=== PATIENT | female | born 1950 | race American Indian/Alaskan Native ===

== ENCOUNTER 2021-03-15 11:15 | Inpatient (IN) ==
[2021-03-15] MEDS ORDERED: IOPAMIDOL 100 ML BOTTLE IV ONE (11:16)
[2021-03-15] MEDS ORDERED: 0.9 % SODIUM CHLORIDE 1,000 ML IV ONE (11:55)
--- NOTE | 2021-03-15 12:06 | Emergency Department Note ---
Dizziness HPI General Chief Complaint: Nausea/Vomiting/Diarrhea Stated Complaint: nausea vomiting Time Seen by Provider: 03/15/21 11:30 Source: patient Mode of arrival: ambulatory History of Present Illness HPI Narrative: 70-year-old female presents with chief complaint of dizziness along with headache and nausea and vomiting. Symptoms started at 3 AM. Patient states she has been up and out in this hot weather and thinks her symptoms may be related to that. Patient does have a history of chronic migraines. She developed some unsteadiness last night along with a headache and nausea vomiting. Says she feels dizzy like as if she were drunk but she has not been drinking. No blurry vision. No chest pain or shortness of breath. Patient was seen in urgent care this morning and sent here because she is still very unsteady. Patient does not really describe a sense of movement but symptoms are worse when she moves her head and when she tries to get up. Patient denies any head trauma. No diarrhea. No fevers no chills. Related Data Home Medications Medication Instructions Recorded Confirmed cyanocobalamin (vitamin B-12) 1,000 mcg IM QMONTH 05/05/19 03/15/21 1,000 mcg/mL injection kit lorazepam 0.5 mg tablet 0.5 mg PO BIDP PRN 05/05/19 03/15/21 L.acidoph, paracasei,B. lactis 2 each PO DAILY 09/19/19 03/15/21 fluticasone propionate 2 spray NS BID PRN 09/19/19 03/15/21 turmeric root extract 1,000 mg PO BID 09/19/19 03/15/21 cholecalciferol (vitamin D3) 250 250 mcg PO QDAY 11/14/20 03/15/21 mcg (10,000 unit) tablet coenzyme Q10 100 mg capsule 100 mg PO QDAY 11/14/20 03/15/21 magnesium oxide 400 mg PO QDAY 11/14/20 03/15/21 Previous Rx's Medication Instructions Recorded budesonide 180 mcg/actuation See Rx Instructions .ROUTE 01/27/20 breath activated powder inhaler .COMPLEX #1 unknown measurement unit code: each olmesartan 5 mg tablet See Rx Instructions .ROUTE 05/10/20 .COMPLEX #90 tablet ipratropium 0.5 mg-albuterol 3 mg 3 ml INHALATION QID PRN #180 ml 05/17/20 (2.5 mg base)/3 mL nebulization soln albuterol sulfate 90 mcg/actuation See Rx Instructions .ROUTE 05/31/20 aerosol inhaler .COMPLEX #18 g triamterene 37.5 See Rx Instructions .ROUTE 08/14/20 mg-hydrochlorothiazide 25 mg tablet .COMPLEX #90 tab blood-glucose meter #1 each 10/12/20 epinephrine 0.3 mg/0.3 mL 0.3 ml IM ONCE PRN #1 each 10/26/20 injection, auto-injector blood sugar diagnostic #100 each 11/09/20 erenumab-aooe 70 mg/mL See Rx Instructions .ROUTE 11/26/20 subcutaneous auto-injector .COMPLEX #1 ml fenofibrate 54 mg tablet See Rx Instructions .ROUTE 12/17/20 .COMPLEX #90 tab Diabetic shoes with inserts #1 ea 12/25/20 lamotrigine 150 mg tablet 150 mg PO BID 30 Days #60 tab 01/16/21 prazosin 2 mg capsule 2 mg PO QHS 90 Days #90 cap 01/16/21 fexofenadine 180 mg tablet 180 mg PO Q24H #90 tab 01/23/21 glipizide 5 mg tablet, extended 5 mg PO QDAY #90 tab 02/13/21 release 24 hr Allergies Allergy/AdvReac Type Severity Reaction Status Date / Time Bee Pollen Allergy Severe Anaphylaxis Verified 03/15/21 10:36 Penicillins Allergy Severe Anaphylaxis Verified 03/15/21 10:36 shellfish derived Allergy Severe Anaphylaxis Verified 03/15/21 10:36 adhesive tape Allergy Mild Hives Verified 03/15/21 10:36 codeine Allergy Mild Hives Verified 03/15/21 10:36 iodine Allergy Mild Hives Verified 03/15/21 10:36 NSAIDS (Non-Steroidal Allergy Mild Swelling Verified 03/15/21 10:36 Anti-Inflamma bee venom protein (honey bee) Allergy Anaphylaxis Verified 03/15/21 10:36 bupropion AdvReac Mild Other Verified 03/15/21 10:36 diphenhydramine AdvReac Mild Insomnia Verified 03/15/21 10:36 duloxetine AdvReac Mild Hallucinati Verified 03/15/21 10:36 ng Erythromycin Base AdvReac Mild Gastrointestinal Verified 03/15/21 10:36 Upset hydroxyzine AdvReac Mild Hypertensio Verified 03/15/21 10:36 n meperidine AdvReac Mild Agitated Verified 03/15/21 10:36 morphine AdvReac Mild Agitated Verified 03/15/21 10:36 rofecoxib AdvReac Mild Hypertensio Verified 03/15/21 10:36 n most antidepressants Allergy Severe unknown Uncoded 03/15/21 10:36 trees Allergy Severe unknown Uncoded 03/15/21 10:36 Review of Systems ROS ROS Narrative: Narrative: All systems ED: reviewed and negative except as stated. Constitutional: Denies fever, chills and sweats Eyes: Denies vision change Cardiovascular: Denies chest pain Respiratory: Denies shortness of breath and cough Gastrointestinal: Denies vomiting Musculoskeletal: Denies back pain and joint pain Integumentary: Denies rash Neurological: Reports headache, abnormal gait and dizziness Psychiatric: Denies anxiety, suicidal thoughts and homicidal thoughts Endocrine: Denies polydipsia and polyuria Hematological/Lymphatic: Denies easy bleeding and easy bruising PFSH Narrative Patient History Narrative: Narrative: Medical/Surgical/Family History All Active Problems (Updated 03/15/21 @ 15:54 by Mo Cruz MD) Ataxic gait (Acute) Dizziness (Acute) Seasonal and perennial allergic rhinitis (Acute) Type II diabetes mellitus with peripheral autonomic neuropathy (Acute) Foot callus (Acute) Pain of right deltoid (Acute) Chronic right shoulder pain (Acute) Diabetes type 2, controlled (Acute) Head injury (Acute) Injury of knee, left (Acute) Severe obesity (Chronic) Anemia, B12 deficiency (Chronic) Liver cyst (Chronic) Non-alcoholic fatty liver disease (Chronic) Allergic rhinitis (Chronic) Hypertension (Chronic) Asthma, extrinsic (Chronic) Lumbar back pain (Chronic) Nodule on liver (Chronic) Hyperlipidemia (Chronic) History of kidney stones (Chronic) Atherosclerosis of aorta (Chronic) Post-op pain (Acute) Callus of foot (Chronic) Right-sided Jeff's palsy (Chronic) Post-traumatic headache (Chronic) Vaginal candidiasis (Chronic) Severe obesity (BMI >= 40) (Chronic) Spasm of back muscles (Chronic) Wrist pain (Chronic) Hand pain (Chronic) Painful swelling of joint (Chronic) Onychomycosis (Chronic) Neck pain (Chronic) Pain, joint, shoulder, right (Chronic) Anxiety disorder (Acute) Chronic obstructive pulmonary disease with (acute) exacerbation (Chronic) Radiculopathy, lumbar region (Chronic) Diverticulitis (Chronic) Chronic back pain (Chronic) Anxiety and depression (Chronic) Bipolar affect, depressed (Chronic) Asthma (Chronic) Viral syndrome (Acute) Sinusitis (Acute) Upper respiratory infection (Acute) Left anterior shoulder pain (Acute) Type 2 diabetes mellitus (Acute) Night terrors, adult (Acute) Encounter for immunization (Acute) Incontinence overflow, stress female (Acute) Closed head injury (Acute) Strain of muscle, fascia and tendon at neck level, initial encounter (Acute) Disorder of eating (Acute) Hypoglycemia associated with diabetes (Acute) Situational anxiety (Acute) Fatigue (Acute) Open wound of toe (Acute) Onychomycosis of toenail (Acute) Cervical spine pain (Acute) Cellulitis and abscess of unspecified digit (Acute) PTSD (post-traumatic stress disorder) (Chronic) Major depressive disorder, recurrent (Chronic) Medical History Acute exacerbation of chronic obstructive airways disease Allergic rhinitis Anemia, B12 deficiency Anxiety and depression Anxiety disorder with panic attacks - rule out panic disorder Asthma Asthma, extrinsic Atherosclerosis of aorta Bipolar affect, depressed Bladder infection frequent Bladder infection, chronic Chronic back pain Chronic obstructive pulmonary disease with (acute) exacerbation Diverticulitis Diverticulosis Dizziness Dysuria Encounter for immunization Hand pain Head injury improved- 11/27/20 History of Jeff's palsy History of kidney stones History of nephrolithotomy with removal of calculi (~03/2018) performed by Dr. Heard Hyperlipidemia Hypertension Injury of knee, left improving -11/27/20 Kidney stones Liver cyst Lumbar back pain with radiculopathy Migraine Muscle spasm of back Neck pain Neck pain Nodule on liver Non-alcoholic fatty liver disease Onychomycosis Onychomycosis of toenail Pain, joint, shoulder, right Painful swelling of joint Painful swelling of joint Post-traumatic headache Puncture wound Radiculopathy, lumbar region Right-sided Jeff's palsy Mild episode-09/07/20 RUQ abdominal pain RUQ abdominal tenderness Screening breast examination (~03/10/16) [facility] Severe obesity Severe obesity (BMI >= 40) Spasm of back muscles Uncontrolled diabetes mellitus controlled Vaginal candidiasis Viral syndrome Wrist pain Surgical History History of ankle surgery . Demetrio Torres History of arthroscopy of left knee (~2012) History of arthroscopy of right knee (~2013) History of 1973, 1974 and 1975 History of colonoscopy (~2012) performed by Dr. Rodriguez History of colonoscopy (02/24/19) performed by Dr. Bell History of esophagogastroduodenoscopy (EGD) (~02/2016) History of eye surgery (~1954) History of hip replacement (~2006) History of hysterectomy (~1979) History of shoulder surgery 2008 and 11/2017 History of surgery (~2011) arm/thumb Family History Father Alcohol abuse Mother Anxiety Depression Panic disorder Post traumatic stress disorder (PTSD) Other No pertinent family history Social History Smoking Status: Never smoker Alcohol Intake Frequency: does not drink Substance Use: does not use and marijuana Exam Narrative Narrative: Constitutional: Awake alert no acute distress obese HEENT: Normocephalic, atraumatic PERRLA, EOMI, lateral nystagmus is present, oral mucosa moist, pharynx clear, tympanic membranes are clear bilaterally Neck: Supple, no lymphadenopathy, no JVD Lungs: Breathing unlabored, lungs clear Cardiac: Regular rate and rhythm, normal distal pulses, GI: Soft nontender nondistended no guarding no rebound Musculoskeletal: No tenderness, no deformities, no edema, full range of motion Neuro: Awake alert, cranial nerves II through XII grossly intact, no focal motor or sensory deficits; NIH stroke score is 0, negative test of skew, patient does have some truncal ataxia as when patient tried to stand up she nearly fell over Psychiatric: Normal mood and affect Skin: Warm dry no rash, cap refill less than 2 seconds Course Reevaluation(s) Reevaluation #1: Patient feels better but still feels dizzy and off balance when she walks. Ambulation was attempted and patient does still have some mild reagan ncal ataxia. Discussed ED findings showed no acute process CT of the head labs are unremarkable. Patient is still unsteady with ataxic gait she is not safe to be discharged home at this time. Case discussed with the hospitalist for possible admission to the hospital. Time: 15:45 Consultations Consultation #1: Case discussed with Dr. Yi, hospitalist who would like neurology to be consulted first and if they are agreeable the patient could be admitted here. Time: 16:20 Consultation #2: Case discussed with neurologist, Dr. Best [place] who feels the patient symptoms are most consistent with benign positional vertigo since there are more of a positional component and gets better with rest even though the patient does not describe a spinning sensation. He felt the patient can be observed here and then to do a CTA of the brain since the patient cannot have an MRI and and also physical therapist evaluate the patient to help with the dizziness. I subsequently spoke with Dr. Yi who agrees to admit patient here. Time: 17:41 Vital Signs Vital signs: Vital Signs Temperature 97.1 F 03/15/21 11:16 Pulse Rate 65 03/15/21 11:16 Respiratory Rate 16 03/15/21 11:16 Blood Pressure 112/66 03/15/21 11:16 Pulse Oximetry (%) 97 03/15/21 11:16 Temperature 97.1 F 03/15/21 11:16 Pulse Rate 60 03/15/21 15:32 Respiratory Rate 15 03/15/21 15:32 Blood Pressure 135/78 03/15/21 15:32 Pulse Oximetry (%) 98 03/15/21 15:32 MDM MDM Narrative Medical decision making narrative: 70-year-old female presents with acute onset of dizziness unsteady gait since [address] of the brain did not show any acute process. Patient describes a unsteadiness rather than a spinning sensation. Case discussed with neurologist, Dr. Best at [facility] he felt the patient symptoms more likely represent BPPV rather than an acute posterior stroke as the patient's symptoms improved with rest and are worse with movement. He felt the patient would be stable for admission here. Discussed the case with Dr. Yi who agrees to admit the patient here for further evaluation treatment. Differential Diagnosis Differential Diagnosis: Vertigo, stroke, intracranial lesion, migraine, dehydration Lab Data Result diagrams: 03/15/21 12:26 03/15/21 12:26 Labs: Lab Results 03/15/21 03/15/21 03/15/21 Range/Units 12:05 12:05 12:26 WBC 8.3 (4.5-11.0) K/mcL RBC 4.50 (4.00-5.20) M/mcL Hgb 12.6 (12.0-15.0) g/dL Hct 40.1 (36.0-48.0) % MCV 89.1 (80.0-100.0) fL MCH 28.0 (26.0-34.0) pg MCHC 31.4 (31.0-36.0) g/dL RDW 13.9 (11.5-14.5) % Plt Count 241 (140-440) K/mcL MPV 10.8 H (7.4-10.4) fL Neut % (Auto) 70.4 (38.0-78.0) % Lymph % (Auto) 20.7 (15.0-49.0) % Vance % (Auto) 7.2 (1.0-12.0) % Eos % (Auto) 1.2 (0.0-7.0) % Baso % (Auto) 0.5 (0.0-2.0) % Lymph # (Auto) 1.72 (1.50-4.80) K/mcL Vance # (Auto) 0.60 (0.10-0.90) K/mcL Eos # (Auto) 0.10 (0.00-0.70) K/mcL Baso # (Auto) 0.04 (0.00-0.20) K/mcL Absolute Neutrophils 5.84 (1.80-8.00) K/mcL PT (11.9-14.5) sec INR (0.9-1.1) Sodium (133-145) mmol/L Potassium (3.3-5.1) mmol/L Chloride (96-108) mmol/L Carbon Dioxide (22-30) mmol/L Anion Gap (8.0-16.0) BUN (8-23) mg/dL Creatinine (0.6-1.1) mg/dL GFR Calculation Glucose (70-105) mg/dL Calcium (8.6-10.4) mg/dL Total Bilirubin (0.1-1.0) mg/dL AST (<32) U/L ALT (<40) U/L Alkaline Phosphatase (39-117) U/L Troponin T (<0.03) ng/mL Total Protein (5.9-8.4) gm/dL Albumin (3.2-5.2) gm/dL Globulin (2.2-3.7) gm/dL Albumin/Globulin Ratio (1.0-2.3) Urine Color Yellow Urine Appearance Clear (Clear) Urine pH 7.0 (5.0-9.0) Ur Specific Jackson 1.020 (1.000-1.035) Urine Protein Negative (Negative) mg/dL Urine Glucose (UA) Negative (Negative) mg/dL Urine Ketones Negative (Negative) mg/dL Urine Occult Blood Negative (Negative) mg/dL Urine Nitrate Negative (Negative) Urine Bilirubin Negative (Negative) mg/dL Urine Urobilinogen Negative mg/dL Ur Leukocyte Esterase Negative (Negative) /ug Ur Culture Indicated? No Urine Opiates Screen None detected Ur Opiates Confirm TNP Ur Oxycodone Screen None detected Urine Methadone Screen None detected Ur Methadone Confirm TNP Ur Barbiturates Screen None detected Ur Barbiturate Confirm TNP Ur Phencyclidine Scrn None detected Urine PCP Confirm TNP Ur Amphetamines Screen None detected U Amphetamines Confirm TNP U Benzodiazepines Scrn None detected U Benzodiazepine Confm TNP Urine Cocaine Screen None detected Urine Cocaine Confirm TNP U Marijuana (THC) Screen Suspect positive A 03/15/21 03/15/21 03/15/21 Range/Units 12:26 12:26 12:26 WBC (4.5-11.0) K/mcL RBC (4.00-5.20) M/mcL Hgb (12.0-15.0) g/dL Hct (36.0-48.0) % MCV (80.0-100.0) fL MCH (26.0-34.0) pg MCHC (31.0-36.0) g/dL RDW (11.5-14.5) % Plt Count (140-440) K/mcL MPV (7.4-10.4) fL Neut % (Auto) (38.0-78.0) % Lymph % (Auto) (15.0-49.0) % Vance % (Auto) (1.0-12.0) % Eos % (Auto) (0.0-7.0) % Baso % (Auto) (0.0-2.0) % Lymph # (Auto) (1.50-4.80) K/mcL Vance # (Auto) (0.10-0.90) K/mcL Eos # (Auto) (0.00-0.70) K/mcL Baso # (Auto) (0.00-0.20) K/mcL Absolute Neutrophils (1.80-8.00) K/mcL PT 12.8 (11.9-14.5) sec INR 0.9 (0.9-1.1) Sodium 141 (133-145) mmol/L Potassium 3.9 (3.3-5.1) mmol/L Chloride 103 (96-108) mmol/L Carbon Dioxide 26 (22-30) mmol/L Anion Gap 12.0 (8.0-16.0) BUN 26 H (8-23) mg/dL Creatinine 0.8 (0.6-1.1) mg/dL GFR Calculation 75 Glucose 160 H (70-105) mg/dL Calcium 10.2 (8.6-10.4) mg/dL Total Bilirubin 0.3 (0.1-1.0) mg/dL AST 13 (<32) U/L ALT 20 (<40) U/L Alkaline Phosphatase 45 (39-117) U/L Troponin T < 0.01 (<0.03) ng/mL Total Protein 7.2 (5.9-8.4) gm/dL Albumin 4.3 (3.2-5.2) gm/dL Globulin 2.9 (2.2-3.7) gm/dL Albumin/Globulin Ratio 1.5 (1.0-2.3) Urine Color Urine Appearance (Clear) Urine pH (5.0-9.0) Ur Specific Jackson (1.000-1.035) Urine Protein (Negative) mg/dL Urine Glucose (UA) (Negative) mg/dL Urine Ketones (Negative) mg/dL Urine Occult Blood (Negative) mg/dL Urine Nitrate (Negative) Urine Bilirubin (Negative) mg/dL Urine Urobilinogen mg/dL Ur Leukocyte Esterase (Negative) /ug Ur Culture Indicated? Urine Opiates Screen Ur Opiates Confirm Ur Oxycodone Screen Urine Methadone Screen Ur Methadone Confirm Ur Barbiturates Screen Ur Barbiturate Confirm Ur Phencyclidine Scrn Urine PCP Confirm Ur Amphetamines Screen U Amphetamines Confirm U Benzodiazepines Scrn U Benzodiazepine Confm Urine Cocaine Screen Urine Cocaine Confirm U Marijuana (THC) Screen ED POC Tests ED POC Tests: HERNANDO - SARS Antigen Negative EKG Data EKG #1: EKG attestation: Yes I reviewed and interpreted this EKG. and Yes There are no EKG findings of acute coronary syndrome EKG results narrative: Performed at 1216 shows sinus rhythm rate of 62 normal axis normal intervals no ectopy there is some early repolarization, Discharge Plan Patient/Caregiver Discharge Instructions Pt seen by [employer]/PA only: No Clinical Impression: Dizziness, Ataxic gait Patient Disposition: Xfer As Outpt/Obs ([facility]) Condition: Good Follow up with: Irina Martin ARNP [Primary Care Provider] - Prescriptions: No Action prazosin 2 mg capsule 2 mg PO QHS 90 Days Qty: 90 RF: 2 Hold Instructions: SHELL Harper lamotrigine [Lamictal] 150 mg tablet 150 mg PO BID 30 Days Qty: 60 RF: 2 magnesium oxide 400 mg magnesium capsule 400 mg PO QDAY RF: 0 cholecalciferol (vitamin D3) 250 mcg (10,000 unit) tablet 250 mcg PO QDAY RF: 0 coenzyme Q10 100 mg capsule 100 mg PO QDAY RF: 0 ipratropium-albuterol 0.5 mg-3 mg(2.5 mg base)/3 mL solution for nebulization 3 ml INHALATION QID PRN (Reason: shortness of breath) Qty: 180 RF: 3 budesonide [Pulmicort Flexhaler] 180 mcg/actuation aerosol powdr breath activated See Rx Instructions .ROUTE .COMPLEX Qty: 1 RF: 2 olmesartan 5 mg tablet See Rx Instructions .ROUTE .COMPLEX Qty: 90 RF: 3 albuterol sulfate 90 mcg/actuation HFA aerosol inhaler See Rx Instructions .ROUTE .COMPLEX Qty: 18 RF: 0 triamterene-hydrochlorothiazid 37.5-25 mg tablet See Rx Instructions .ROUTE .COMPLEX Qty: 90 RF: 3 (DME) blood-glucose meter [Accu-Chek Constance Plus Meter] Misc See Rx Instructions .ROUTE .MEDSUPPLY Qty: 1 RF: 0 epinephrine [EpiPen 2-Salty] 0.3 mg/0.3 mL auto-injector 0.3 ml IM ONCE PRN (Reason: Anaphylaxis) Qty: 1 RF: 0 (DME) Accu-Chek Constance Plus test strp Strip See Rx Instructions .ROUTE .MEDSUPPLY Qty: 100 RF: 0 Aimovig Autoinjector 70 mg/mL auto-injector See Rx Instructions .ROUTE .COMPLEX Qty: 1 RF: 3 fenofibrate 54 mg tablet See Rx Instructions .ROUTE .COMPLEX Qty: 90 RF: 1 (DME) Diabetic shoes with inserts See Rx Instructions .Route .MEDSUPPLY Qty: 1 RF: 0 lorazepam [Ativan] 0.5 mg tablet 0.5 mg PO BIDP PRN (Reason: Anxiety) RF: 0 B-12 Compliance 1,000 mcg/mL kit 1,000 mcg IM QMONTH RF: 0 fexofenadine 180 mg tablet 180 mg PO Q24H Qty: 90 RF: 1 glipizide 5 mg tablet extended release 24hr 5 mg PO QDAY Qty: 90 RF: 1 fluticasone propionate 1 SPRAY spray,suspension 2 spray NS BID PRN (Reason: Allergy Symptoms) RF: 0 turmeric root extract 500 MG capsule 1,000 mg PO BID RF: 0 L.acidoph, paracasei,B. lactis 1 EACH capsule 2 each PO DAILY RF: 0
[2021-03-15] MEDS ORDERED: ONDANSETRON 4 MG/2 ML VIAL IV ONE (12:22)
--- NOTE | 2021-03-15 12:53 | Cat Scan Report ---
CLINICAL INFORMATION: Dizziness and headache COMPARISON: Head CT 09/05/2020 TECHNIQUE: 2.5 mm helical slices were obtained in the skull base to vertex. Following reconstruction, axial reformatted images were reviewed at bone and parenchymal windows. The exam was performed using radiation dose optimization techniques including, but not limited to, automated exposure control, adjustment of the mA and/or kV according to patient size and use of iterative reconstruction technique. FINDINGS: The ventricles, sulci, fissures, and cisterns are normal in size and configuration. No extra-axial fluid collections are identified. The cerebrum, brainstem and cerebellum are unremarkable. There is no evidence of hemorrhage, mass effect, or edema. Bone windows show no osseous abnormality. IMPRESSION: Normal head CT without contrast. Interpreted and Authenticated by: Kingston Rodriguez 03/15/21
[2021-03-15 13:08] LABS: Basophils # (Auto) 0.04 K/mcL (0.00-0.20); Basophils % (Auto) 0.5 % (0.0-2.0); Eosinophils % (Auto) 1.2 % (0.0-7.0); Hematocrit 40.1 % (36.0-48.0); Hemoglobin 12.6 g/dL (12.0-15.0); Lymphocytes # (Auto) 1.72 K/mcL (1.50-4.80); Lymphocytes % (Auto) 20.7 % (15.0-49.0); Mean Cell Volume 89.1 fL (80.0-100.0); Mean Corpuscular HGB Conc 31.4 g/dL (31.0-36.0); Mean Platelet Volume 10.8 fL (7.4-10.4); Monocytes % (Auto) 7.2 % (1.0-12.0); Neutrophils % (Auto) 70.4 % (38.0-78.0); Platelet Count 241 K/mcL (140-440); Red Cell Distribution Width 13.9 % (11.5-14.5); WBC 8.3 K/mcL (4.5-11.0)
--- NOTE | 2021-03-15 13:17 | XRay Report ---
CLINICAL INFORMATION: dizziness COMPARISON: 04/09/2018 FINDINGS: Heart is borderline enlarged but unchanged. Mediastinum and pulmonary vessels are normal. There is minor bibasilar atelectasis. No infiltrates or effusions. IMPRESSION: Minor bibasilar atelectasis. Interpreted and Authenticated by: Kingston Rodriguez 03/15/21
[2021-03-15 13:27] LABS: Appearance,Urine CLEAR (Clear); Bilirubin,Urine Negative (Negative); Color,Urine YELLOW; Culture Indicated,Urine No; Glucose,Urine (UA) Negative (Negative); Ketones,Urine Negative (Negative); Leukocyte Esterase,Urine Negative /ug (Negative); Nitrate,Urine Negative (Negative); Protein,Urine Negative (Negative); Urine Blood Negative (Negative); Urobilinogen,Urine Negative
[2021-03-15 13:41] LABS: INR 0.9 (0.9-1.1); Prothrombin Time 12.8 sec (11.9-14.5)
[2021-03-15 14:07] LABS: Amphetamine Screen,Urine None detected; Barbiturate Screen,Urine None detected; Benzodiazepines Screen,Urine None detected; Cannabinoid Screen,Urine Suspect Positive; Cocaine Screen,Urine None detected; Opiate Screen,Urine None detected; Oxycodone, Urine Screen None detected; Phencyclidine Screen,Urine None detected
[2021-03-15 14:28] LABS: ALT/SGPT 20 U/L (<40); AST/SGOT 13 U/L (<32); Albumin 4.3 gm/dL (3.2-5.2); Albumin/Globulin Ratio 1.5 (1.0-2.3); Alkaline Phosphatase 45 U/L (39-117); Bilirubin,Total 0.3 mg/dL (0.1-1.0); Blood Urea Nitrogen 26 mg/dL (8-23); Calcium 10.2 mg/dL (8.6-10.4); Carbon Dioxide 26 mmol/L (22-30); Chloride 103 mmol/L (96-108); Globulin 2.9 gm/dL (2.2-3.7); Glomerular Filtration Rate 75; Glucose 160 mg/dL (70-105)
[2021-03-15] MEDS ORDERED: methylPREDNISolone SOD SUCC 125 MG/2 ML VIAL IV ONE (17:52)
[2021-03-15] MEDS ORDERED: diphenhydrAMINE 50 MG/ML VIAL IV ONE (17:52)
--- NOTE | 2021-03-15 18:03 | Internal Med History&Physical ---
HPI History of Present Illness Patient information: Note initiated : 03/15/21 at 5:58 pm Service Date, if different from initiated Date: [] Patient: Shakila Loya a 70 y/o F admitted on for N/V. Chief Complaint: [] History of present illness: Ms. Loya is a 70 year old F Patient presents today with feeling ill upset stomach feeling like she is drunk he says kind of like vertigo but not quite. Patient went to bed feeling relatively fine feels a little warm she has been out in the heat for the past couple days. She woke up at 3 AM with a sick stomach and went back to bed got up at 6 went to feed her horse out in the heat came back still feeling ill upset stomach. Ventrally she went into minor care where she started having some nausea vomiting. Denies diarrhea. She does have a headache which she says is different from her usual tension headaches. Does not have that anymore. Noncontrast CT in ED was unremarkable. \Vital signs unremarkable. Chemistry negative of volume depletion Case discussed with neurologist given consideration for possibly posterior infarct. Neurologist felt less likely and probably related to BPPV given increased symptoms with movement recommended CTA head and neck. Patient understood that he in the ED and felt unsafe for discharge. Admission requested for further imaging work-up and evaluation. Review of Systems: Pertinent positives as above. Denies headache/fever/chills/chest or abdominal pain/cough/dyspnea/diarrhea. Remaining 10 point review of system reviewed negative PFSH PFSH All Active Problems (Updated 03/15/21 @ 15:54 by Mo Cruz MD) Ataxic gait (Acute) Dizziness (Acute) Seasonal and perennial allergic rhinitis (Acute) Type II diabetes mellitus with peripheral autonomic neuropathy (Acute) Foot callus (Acute) Pain of right deltoid (Acute) Chronic right shoulder pain (Acute) Diabetes type 2, controlled (Acute) Head injury (Acute) Injury of knee, left (Acute) Severe obesity (Chronic) Anemia, B12 deficiency (Chronic) Liver cyst (Chronic) Non-alcoholic fatty liver disease (Chronic) Allergic rhinitis (Chronic) Hypertension (Chronic) Asthma, extrinsic (Chronic) Lumbar back pain (Chronic) Nodule on liver (Chronic) Hyperlipidemia (Chronic) History of kidney stones (Chronic) Atherosclerosis of aorta (Chronic) Post-op pain (Acute) Callus of foot (Chronic) Right-sided Jeff's palsy (Chronic) Post-traumatic headache (Chronic) Vaginal candidiasis (Chronic) Severe obesity (BMI >= 40) (Chronic) Spasm of back muscles (Chronic) Wrist pain (Chronic) Hand pain (Chronic) Painful swelling of joint (Chronic) Onychomycosis (Chronic) Neck pain (Chronic) Pain, joint, shoulder, right (Chronic) Anxiety disorder (Acute) Chronic obstructive pulmonary disease with (acute) exacerbation (Chronic) Radiculopathy, lumbar region (Chronic) Diverticulitis (Chronic) Chronic back pain (Chronic) Anxiety and depression (Chronic) Bipolar affect, depressed (Chronic) Asthma (Chronic) Viral syndrome (Acute) Sinusitis (Acute) Upper respiratory infection (Acute) Left anterior shoulder pain (Acute) Type 2 diabetes mellitus (Acute) Night terrors, adult (Acute) Encounter for immunization (Acute) Incontinence overflow, stress female (Acute) Closed head injury (Acute) Strain of muscle, fascia and tendon at neck level, initial encounter (Acute) Disorder of eating (Acute) Hypoglycemia associated with diabetes (Acute) Situational anxiety (Acute) Fatigue (Acute) Open wound of toe (Acute) Onychomycosis of toenail (Acute) Cervical spine pain (Acute) Cellulitis and abscess of unspecified digit (Acute) PTSD (post-traumatic stress disorder) (Chronic) Major depressive disorder, recurrent (Chronic) Medical History Acute exacerbation of chronic obstructive airways disease Allergic rhinitis Anemia, B12 deficiency Anxiety and depression Anxiety disorder with panic attacks - rule out panic disorder Asthma Asthma, extrinsic Atherosclerosis of aorta Bipolar affect, depressed Bladder infection frequent Bladder infection, chronic Chronic back pain Chronic obstructive pulmonary disease with (acute) exacerbation Diverticulitis Diverticulosis Dizziness Dysuria Encounter for immunization Hand pain Head injury improved- 11/27/20 History of Jeff's palsy History of kidney stones History of nephrolithotomy with removal of calculi (~03/2018) performed by Dr. Heard Hyperlipidemia Hypertension Injury of knee, left improving -11/27/20 Kidney stones Liver cyst Lumbar back pain with radiculopathy Migraine Muscle spasm of back Neck pain Neck pain Nodule on liver Non-alcoholic fatty liver disease Onychomycosis Onychomycosis of toenail Pain, joint, shoulder, right Painful swelling of joint Painful swelling of joint Post-traumatic headache Puncture wound Radiculopathy, lumbar region Right-sided Jeff's palsy Mild episode-09/07/20 RUQ abdominal pain RUQ abdominal tenderness Screening breast examination (~03/10/16) [facility] Severe obesity Severe obesity (BMI >= 40) Spasm of back muscles Uncontrolled diabetes mellitus controlled Vaginal candidiasis Viral syndrome Wrist pain Surgical History History of ankle surgery . Demetrio Torres History of arthroscopy of left knee (~2012) History of arthroscopy of right knee (~2013) History of 1973, 1974 and 1975 History of colonoscopy (~2012) performed by Dr. Rodriguez History of colonoscopy (02/24/19) performed by Dr. Bell History of esophagogastroduodenoscopy (EGD) (~02/2016) History of eye surgery (~1954) History of hip replacement (~2006) History of hysterectomy (~1979) History of shoulder surgery 2008 and 11/2017 History of surgery (~2011) arm/thumb Family History Father Alcohol abuse Mother Anxiety Depression Panic disorder Post traumatic stress disorder (PTSD) Other No pertinent family history Social History marital status: single physical activity: none alcohol intake frequency: does not drink substance use type: does not use and marijuana MEDS/ALLERGIES Home Medications and Allergies Home Medications Medication Instructions Recorded Confirmed Type cyanocobalamin (vitamin B-12) 1,000 mcg IM QMONTH 05/05/19 03/15/21 History 1,000 mcg/mL injection kit lorazepam 0.5 mg tablet 0.5 mg PO BIDP PRN 05/05/19 03/15/21 History L.acidoph, paracasei,B. lactis 2 each PO DAILY 09/19/19 03/15/21 History fluticasone propionate 2 spray NS BID PRN 09/19/19 03/15/21 History turmeric root extract 1,000 mg PO BID 09/19/19 03/15/21 History budesonide 180 mcg/actuation See Rx Instructions .ROUTE 01/27/20 03/15/21 Rx breath activated powder inhaler .COMPLEX #1 unknown measurement unit code: each olmesartan 5 mg tablet See Rx Instructions .ROUTE 05/10/20 03/15/21 Rx .COMPLEX #90 tablet ipratropium 0.5 mg-albuterol 3 mg 3 ml INHALATION QID PRN #180 ml 05/17/20 03/15/21 Rx (2.5 mg base)/3 mL nebulization soln albuterol sulfate 90 mcg/actuation See Rx Instructions .ROUTE 05/31/20 03/15/21 Rx aerosol inhaler .COMPLEX #18 g triamterene 37.5 See Rx Instructions .ROUTE 08/14/20 03/15/21 Rx mg-hydrochlorothiazide 25 mg tablet .COMPLEX #90 tab blood-glucose meter #1 each 10/12/20 03/15/21 Rx epinephrine 0.3 mg/0.3 mL 0.3 ml IM ONCE PRN #1 each 10/26/20 03/15/21 Rx injection, auto-injector blood sugar diagnostic #100 each 11/09/20 03/15/21 Rx cholecalciferol (vitamin D3) 250 250 mcg PO QDAY 11/14/20 03/15/21 History mcg (10,000 unit) tablet coenzyme Q10 100 mg capsule 100 mg PO QDAY 11/14/20 03/15/21 History magnesium oxide 400 mg PO QDAY 11/14/20 03/15/21 History erenumab-aooe 70 mg/mL See Rx Instructions .ROUTE 11/26/20 03/15/21 Rx subcutaneous auto-injector .COMPLEX #1 ml fenofibrate 54 mg tablet See Rx Instructions .ROUTE 12/17/20 03/15/21 Rx .COMPLEX #90 tab Diabetic shoes with inserts #1 ea 12/25/20 03/15/21 Rx lamotrigine 150 mg tablet 150 mg PO BID 30 Days #60 tab 01/16/21 03/15/21 Rx prazosin 2 mg capsule 2 mg PO QHS 90 Days #90 cap 01/16/21 03/15/21 Rx fexofenadine 180 mg tablet 180 mg PO Q24H #90 tab 01/23/21 03/15/21 Rx glipizide 5 mg tablet, extended 5 mg PO QDAY #90 tab 02/13/21 03/15/21 Rx release 24 hr Allergies Allergy/AdvReac Type Severity Reaction Status Date / Time Bee Pollen Allergy Severe Anaphylaxis Verified 03/15/21 10:36 Penicillins Allergy Severe Anaphylaxis Verified 03/15/21 10:36 shellfish derived Allergy Severe Anaphylaxis Verified 03/15/21 10:36 adhesive tape Allergy Mild Hives Verified 03/15/21 10:36 codeine Allergy Mild Hives Verified 03/15/21 10:36 iodine Allergy Mild Hives Verified 03/15/21 10:36 NSAIDS (Non-Steroidal Allergy Mild Swelling Verified 03/15/21 10:36 Anti-Inflamma bee venom protein (honey bee) Allergy Anaphylaxis Verified 03/15/21 10:36 bupropion AdvReac Mild Other Verified 03/15/21 10:36 diphenhydramine AdvReac Mild Insomnia Verified 03/15/21 10:36 duloxetine AdvReac Mild Hallucinati Verified 03/15/21 10:36 ng Erythromycin Base AdvReac Mild Gastrointestinal Verified 03/15/21 10:36 Upset hydroxyzine AdvReac Mild Hypertensio Verified 03/15/21 10:36 n meperidine AdvReac Mild Agitated Verified 03/15/21 10:36 morphine AdvReac Mild Agitated Verified 03/15/21 10:36 rofecoxib AdvReac Mild Hypertensio Verified 03/15/21 10:36 n most antidepressants Allergy Severe unknown Uncoded 03/15/21 10:36 trees Allergy Severe unknown Uncoded 03/15/21 10:36 EXAM Constitutional Vitals: Temp Pulse Resp BP Pulse Ox 97.1 F 60 15 135/78 98 03/15/21 11:16 03/15/21 15:32 03/15/21 15:32 03/15/21 15:32 03/15/21 15:32 Exam: General: Alert, Awake, No acute Distress Eyes/N/T: EOMI, PERRL, dry MM Head/Neck: neck supple, normocephalic atraumatic CV: RRR, No murmurs, normal s1/s2 Pulm: Clear b/l, no wheezing/rhonchi/rales Abd: soft, nontender, +BS x4 Ext: no clubbing/cyanosis/edema Neuro: Alert, no focal deficits, moves all extremities, CN 2-12 grossly intact, symmetrical strength b/l upper/lower, sensations intact b/l upper/lower Skin: warm/dry DATA Data Completed and Pending Labs: Labs from last 24 hours 03/15/21 03/15/21 03/15/21 12:26 12:26 12:26 WBC RBC Hgb Hct MCV MCH MCHC RDW Plt Count MPV Neut % (Auto) Lymph % (Auto) [place] % (Auto) Eos % (Auto) Baso % (Auto) Lymph # (Auto) [place] # (Auto) Eos # (Auto) Baso # (Auto) Absolute Neutrophils PT 12.8 INR 0.9 Sodium 141 Potassium 3.9 Chloride 103 Carbon Dioxide 26 Anion Gap 12.0 BUN 26 H Creatinine 0.8 GFR Calculation 75 Glucose 160 H Calcium 10.2 Total Bilirubin 0.3 AST 13 ALT 20 Alkaline Phosphatase 45 Troponin T < 0.01 Total Protein 7.2 Albumin 4.3 Globulin 2.9 Albumin/Globulin Ratio 1.5 Urine Color Urine Appearance Urine pH Ur Specific [place] Urine Protein Urine Glucose (UA) Urine Ketones Urine Occult Blood Urine Nitrate Urine Bilirubin Urine Urobilinogen Ur Leukocyte Esterase Ur Culture Indicated? Urine Opiates Screen Ur Opiates Confirm Ur Oxycodone Screen Urine Methadone Screen Ur Methadone Confirm Ur Barbiturates Screen Ur Barbiturate Confirm Ur Phencyclidine Scrn Urine PCP Confirm Ur Amphetamines Screen U Amphetamines Confirm U Benzodiazepines Scrn U Benzodiazepine Confm Urine Cocaine Screen Urine Cocaine Confirm U Cannabinoids Confirm U Marijuana (THC) Screen 03/15/21 03/15/21 03/15/21 12:26 12:05 12:05 WBC 8.3 RBC 4.50 Hgb 12.6 Hct 40.1 MCV 89.1 MCH 28.0 MCHC 31.4 RDW 13.9 Plt Count 241 MPV 10.8 H Neut % (Auto) 70.4 Lymph % (Auto) 20.7 [place] % (Auto) 7.2 Eos % (Auto) 1.2 Baso % (Auto) 0.5 Lymph # (Auto) 1.72 [place] # (Auto) 0.60 Eos # (Auto) 0.10 Baso # (Auto) 0.04 Absolute Neutrophils 5.84 PT INR Sodium Potassium Chloride Carbon Dioxide Anion Gap BUN Creatinine GFR Calculation Glucose Calcium Total Bilirubin AST ALT Alkaline Phosphatase Troponin T Total Protein Albumin Globulin Albumin/Globulin Ratio Urine Color Yellow Urine Appearance Clear Urine pH 7.0 Ur Specific [place] 1.020 Urine Protein Negative Urine Glucose (UA) Negative Urine Ketones Negative Urine Occult Blood Negative Urine Nitrate Negative Urine Bilirubin Negative Urine Urobilinogen Negative Ur Leukocyte Esterase Negative Ur Culture Indicated? No Urine Opiates Screen None detected Ur Opiates Confirm TNP Ur Oxycodone Screen None detected Urine Methadone Screen None detected Ur Methadone Confirm TNP Ur Barbiturates Screen None detected Ur Barbiturate Confirm TNP Ur Phencyclidine Scrn None detected Urine PCP Confirm TNP Ur Amphetamines Screen None detected U Amphetamines Confirm TNP U Benzodiazepines Scrn None detected U Benzodiazepine Confm TNP Urine Cocaine Screen None detected Urine Cocaine Confirm TNP U Cannabinoids Confirm Pending U Marijuana (THC) Screen Suspect positive A A/P Narrative A/P Narrative: A: *Vertigo: bppv vs dehydration/heat exhaustion - *N/V: 2/2 above *Diabetes w/neuropathy: *HTN/HLD: *Asthma: *PTSD/anxiety: On Lamictal/Ativan *Obesity: * P: -IVF -CTA head neck pending -Meclizine -Continue home medications but hold HCTZ for now -SSI -clarify home meds -PT/OT -ppx: Lovenox DNR Time Spent With Patient Time: Total time spent is greater than 50% in coordination of care (as documented) at patient's floor/unit and/or counseling patient:
--- NOTE | 2021-03-15 18:41 | Cat Scan Report ---
CLINICAL INFORMATION: Dizziness COMPARISON: None. TECHNIQUE: 80 cc of Isovue-370 were injected intravenously , and using SmartPrep to maximize cerebral arterial opacification, 0.625 mm helical slices were obtained from the skull base through the cerebral vertex. Following reconstruction , sagittal, coronal and axial reformatted images were processed and reviewed at multiple windows and levels. 3D volume rendered and MIP images were acquired at a independent workstation. The exam was performed using radiation dose optimization techniques including, but not limited to, automated exposure control, adjustment of the mA and/or kV according to patient size and use of iterative reconstruction technique. FINDINGS: Intracranial vertebral, intracranial internal carotid, anterior middle and posterior cerebral arteries show scattered sclerotic plaque, but no significant stenosis occlusion or other abnormality. Superficial and deep cerebral veins and deep venous sinuses are patent IMPRESSION: Normal intracerebral arterial vascular and venous structures Interpreted and Authenticated by: Kingston Rodriguez 03/15/21
--- NOTE | 2021-03-15 18:43 | Cat Scan Report ---
CLINICAL INFORMATION: Dizziness COMPARISON: None. TECHNIQUE: 80 cc of Isovue-370 were injected intravenously, and using SmartPrep to maximize arterial opacification, 0.625 mm helical slices were obtained from the thoracic aortic arch through the [place]. Following reconstruction, 2.5mm sagittal, coronal and axial reformatted images were processed and reviewed at standard and bone algorithm/window. 3-D volume rendered, CPR and MIP images were processed using a [employer] work station.The exam was performed using radiation dose optimization techniques including, but not limited to, automated exposure control, adjustment of the mA and/or kV according to patient size and use of iterative reconstruction technique. FINDINGS: Thoracic aorta is normal in diameter with moderate fibrofatty calcific plaque. Aortic branching is conventional. The brachiocephalic, both subclavian, both internal/external common carotid cervical vertebral arteries are widely patent. No soft tissue abnormality. IMPRESSION: Normal thoracic aortic arch cephalic, all carotid, both subclavian and both vertebral arteries. 8 mm nodule in the superior segment of the right upper lobe. This mild underlying COPD. Suggest follow-up chest CT in six months to reevaluate the right lower lobe nodule Interpreted and Authenticated by: Kingston Rodriguez 03/15/21
[2021-03-15] MEDS ORDERED: DEXTROSE 50% 50 ML VIAL IV PRN (19:33)
[2021-03-15] MEDS ORDERED: diphenhydrAMINE 50 MG/ML VIAL IV PRN (19:33)
[2021-03-15] MEDS ORDERED: MECLIZINE 25 MG TABLET PO PRN (19:33)
[2021-03-15] MEDS ORDERED: HYDROcodone/APAP 5/325MG TABLET PO PRN (19:33)
[2021-03-15] MEDS ORDERED: DEXTROSE 31 GM ORAL.SUSP PO PRN (19:33)
[2021-03-15] MEDS ORDERED: 0.9 % SODIUM CHLORIDE 1,000 ML IV SCH (19:33)
[2021-03-15] MEDS ORDERED: ONDANSETRON 4 MG/2 ML VIAL IV PRN (19:33)
[2021-03-15] MEDS: INSULIN LISPRO 1 UNIT/0.01 ML UNIT SQ SCH (21:04)
[2021-03-15] MEDS: SENNOSIDES 1 TABLET PO SCH (21:04)
[2021-03-15] MEDS: 0.9 % SODIUM CHLORIDE 10 ML SYRINGE IV SCH (21:05)
[2021-03-15] MEDS: ACETAMINOPHEN 325 MG TABLET PO PRN (21:05)
[2021-03-15] MEDS ORDERED: LORazepam 0.5 MG TABLET PO PRN (21:08)
[2021-03-15] MEDS: lamoTRIgine 100 MG TABLET PO SCH (22:39)
[2021-03-15] MEDS: FENOFIBRATE 43 MG CAPSULE PO SCH (22:39)
[2021-03-15] MEDS: BUDESONIDE 1 PUFF INHALER INH SCH (22:43)
[2021-03-16] MEDS: ACETAMINOPHEN 325 MG TABLET PO PRN (06:14)
[2021-03-16] MEDS: 0.9 % SODIUM CHLORIDE 10 ML SYRINGE IV SCH ×3 (06:19→21:05)
[2021-03-16] MEDS: INSULIN LISPRO 1 UNIT/0.01 ML UNIT SQ SCH ×4 (07:23→20:59)
[2021-03-16] MEDS ORDERED: glipiZIDE 5 MG TAB.XL.24H PO SCH (07:30)
--- NOTE | 2021-03-16 07:52 | Internal Med Progress Note ---
SUBJECTIVE Subjective Patient information: Note initiated : 03/16/21 at 7:49 am Service Date, if different from initiated Date: [] Patient: Shakila Loya a 70 y/o F admitted on 03/15/21 for N/V. Chief Complaint: [] Interval history: History of present illness: Ms. Loya is a 70 year old F Patient presents today with feeling ill upset stomach feeling like she is drunk he says kind of like vertigo but not quite. Patient went to bed feeling relatively fine feels a little warm she has been out in the heat for the past couple days. She woke up at 3 AM with a sick stomach and went back to bed got up at 6 went to feed her horse out in the heat came back still feeling ill upset stomach. Ventrally she went into minor care where she started having some nausea vomiting. Denies diarrhea. She does have a headache which she says is different from her usual tension headaches. Does not have that anymore. Noncontrast CT in ED was unremarkable. \Vital signs unremarkable. Chemistry negative of volume depletion Case discussed with neurologist given consideration for possibly posterior infarct. Neurologist felt less likely and probably related to BPPV given increased symptoms with movement recommended CTA head and neck. Patient understood that he in the ED and felt unsafe for discharge. Admission requested for further imaging work-up and evaluation. 03/16 Overall feeling much better. Still has a mild headache this morning. Still feels a little bit wobbly when she is up. Review of Systems: denies headache/fever/chills/nausea/vomiting/chest or abdominal pain/cough/dyspnea/diarrhea. Otherwise see above. Constitutional Vitals: Vital Signs Temp Pulse Resp BP Pulse Ox 97.3 F 68 16 119/78 96 03/16/21 07:06 03/16/21 07:06 03/16/21 07:06 03/16/21 07:06 03/16/21 07:06 Period Temp Pulse Resp BP Sys/Senior Pulse Ox Last 24 Hr 97.1 F-98.8 F 56-68 15-24 82-153/48-82 96-100 Intake and Output 03/15/21 03/16/21 03/16/21 21:59 05:59 13:59 Intake Total 6917 078 1556 Output Total 300 1475 Balance 700 -1175 1000 Weight 100.652 kg Intake & Output: Intake & Output 03/15/21 03/16/21 03/16/21 21:59 05:59 13:59 Intake Total 4520 382 1936 Output Total 300 1475 Balance 700 -1175 1000 Weight 100.652 kg Intake: IV 1000 1000 Sodium Chloride 0.9% 1,000 ml @ 1000 1000 100 mls/hr IV .Q10H [facility] Rx#: [id number] Oral 300 Output: Void Amount 300 1475 Other: Urine Appearance Clear Clear Urine Color Bright Yellow Pale # Voids 1 Exam: General: Alert, Awake, No acute Distress Eyes/N/T: EOMI, Head/Neck: neck supple, CV: RRR, No murmurs, Pulm: Clear b/l, no wheezing/rhonchi/rales Abd: soft, nontender, +BS x4 Ext: no clubbing/cyanosis/edema Neuro: Alert, no focal deficits, moves all extremities, Skin: warm/dry OBJ DATA Labs CBC & Chem 7: 03/16/21 05:20 03/15/21 12:26 Labs: Abnormal Lab Results 03/15/21 03/15/21 03/15/21 12:26 12:26 12:05 MPV 10.8 H BUN 26 H Glucose 160 H U Marijuana (THC) Screen Suspect positive A Meds: Medications Acetaminophen (Acetaminophen 325 Mg Tablet) 650 mg PO Q6HP PRN; Protocol PRN Reason: Per Pain Protocol/Fever > 101 Last Admin: 03/16/21 06:14 Dose: 650 mg Documented by: Budesonide (Budesonide 1 Puff Inhaler) 2 puff INH BID [facility] Last Admin: 03/15/21 22:43 Dose: Not Given Documented by: Dextrose (Dextrose 50% 50 Ml Vial) 0 ml IV UD PRN PRN Reason: Hypoglycemia Diagnostic Test (Pha) (Accu-Chek 1 Each Strip) 1 each FS ACHS [facility] Last Admin: 03/16/21 07:22 Dose: 1 each Documented by: Diphenhydramine HCl (Diphenhydramine 50 Mg/Ml Vial) 25 mg IV Q4-6HP PRN PRN Reason: Nausea Enoxaparin Sodium (Enoxaparin 40 Mg/0.4 Ml Syringe) 40 mg SQ DAILY [facility] Fenofibrate (Fenofibrate 43 Mg Capsule) 43 mg PO HS [facility] Last Admin: 03/15/21 22:39 Dose: 43 mg Documented by: Glipizide (Glipizide 5 Mg Tab.Xl.24h) 5 mg PO ACB [facility] Last Admin: 03/16/21 07:21 Dose: 5 mg Documented by: Glucose (Dextrose 31 Gm Oral.Susp) 15 gm PO PRN PRN PRN Reason: Hypoglycemia Insulin Human Lispro (Insulin Lispro 1 Unit/0.01 Ml Unit) 0 unit SQ ACHS [facility]; Protocol Last Admin: 03/16/21 07:23 Dose: Not Given Documented by: Lamotrigine (Lamotrigine 100 Mg Tablet) 150 mg PO BID [facility] Last Admin: 03/15/21 22:39 Dose: 150 mg Documented by: Lorazepam (Lorazepam 0.5 Mg Tablet) 0.5 mg PO BIDP PRN PRN Reason: Anxiety Meclizine HCl (Meclizine 25 Mg Tablet) 25 mg PO TIDP PRN PRN Reason: Vertigo Olmesartan (Olmesartan Medoxomil 20 Mg Tablet) 5 mg PO DAILY [facility] Ondansetron HCl (Ondansetron 4 Mg/2 Ml Vial) 4 mg IV Q6HP PRN PRN Reason: Nausea And Vomiting Senna (Sennosides 1 Tablet) 2 tab PO HS [facility] Last Admin: 03/15/21 21:04 Dose: Not Given Documented by: Sodium Chloride (0.9 % Sodium Chloride 10 Ml Syringe) 10 ml IV Q8 [facility] Last Admin: 03/16/21 06:19 Dose: Not Given Documented by: A/P Narrative A/P Narrative: A: *Vertigo: bppv vs dehydration/heat exhaustion -CTA head/neck unremarkable *N/V: 2/2 above *Diabetes w/neuropathy: *HTN/HLD: *Asthma: *PTSD/anxiety: On Lamictal/Ativan *Obesity: * P: -s/p IVF -Meclizine -Continue home medications but hold HCTZ for now -SSI -PT/OT -ppx: Lovenox DNR Time Spent With Patient Time: Total time spent is greater than 50% in coordination of care (as documented) at patient's floor/unit and/or counseling patient: QUALITY VTE Deep Vein Thrombosis/Pulmonary Embolism Present on Admission: No
[2021-03-16 08:27] LABS: Basophils # (Auto) 0.05 K/mcL (0.00-0.20); Basophils % (Auto) 0.6 % (0.0-2.0); Eosinophils # (Auto) 0.12 K/mcL (0.00-0.70); Eosinophils % (Auto) 1.5 % (0.0-7.0); Hemoglobin 11.9 g/dL (12.0-15.0); Lymphocytes # (Auto) 2.17 K/mcL (1.50-4.80); Mean Cell Volume 90.7 fL (80.0-100.0); Mean Corpuscular HGB Conc 30.5 g/dL (31.0-36.0); Mean Platelet Volume 10.9 fL (7.4-10.4); Monocytes # (Auto) 0.63 K/mcL (0.10-0.90); Monocytes % (Auto) 7.8 % (1.0-12.0); Neutrophils % (Auto) 63.1 % (38.0-78.0); Platelet Count 237 K/mcL (140-440); Red Cell Distribution Width 13.9 % (11.5-14.5); WBC 8.1 K/mcL (4.5-11.0)
[2021-03-16 08:52] LABS: ALT/SGPT 18 U/L (<40); AST/SGOT 10 U/L (<32); Albumin 3.9 gm/dL (3.2-5.2); Albumin/Globulin Ratio 1.6 (1.0-2.3); Alkaline Phosphatase 40 U/L (39-117); Bilirubin,Direct < 0.2 mg/dL (0-0.3); Bilirubin,Total 0.3 mg/dL (0.1-1.0); Blood Urea Nitrogen 18 mg/dL (8-23); Calcium 9.6 mg/dL (8.6-10.4); Carbon Dioxide 26 mmol/L (22-30); Chloride 106 mmol/L (96-108); Globulin 2.4 gm/dL (2.2-3.7); Glomerular Filtration Rate 92; Glucose 106 mg/dL (70-105); Lactate Dehydrogenase 233 U/L (135-225); Triglycerides 63 mg/dL (<150); Uric Acid 4.9 mg/dL (2.5-8.0)
[2021-03-16] MEDS ORDERED: OLMESARTAN MEDOXOMIL 20 MG TABLET PO SCH ×2 (09:00→21:00)
--- NOTE | 2021-03-16 09:23 | Discharge Summary ---
Discharge Provider Provider Patient information: Note initiated : 03/16/21 at 9:22 am Service Date, if different from initiated Date: [] Patient: Shakila Loya 70 y/o F admitted on 03/15/21 for N/V. Chief Complaint: [] Date of admission: 03/15/21 19:27 Discharge date: 03/17/21 Primary care physician: LAUREN Rivera Consults: 03/15/21 Consult to Physician [CONS] Stat Comment: Consulting Provider: Jadiel Yi Reason For Exam: Physician to Consult Discharge Meds Discharge Medications Home Medications cyanocobalamin (vitamin B-12) 1,000 mcg/mL injection kit 1,000 mcg IM QMONTH 05/05/19 [History Confirmed 03/15/21 Last Taken 03/01/21 09:30] lorazepam 0.5 mg tablet 0.5 mg PO BIDP PRN 05/05/19 [History Confirmed 03/15/21 Last Taken 03/14/21 20:30] L.acidoph, paracasei,B. lactis 2 each PO DAILY 09/19/19 [History Confirmed 03/15/21 Last Taken 03/15/21 07:30] fluticasone propionate 2 spray NS BID PRN 09/19/19 [History Confirmed 03/15/21 Last Taken 03/15/21 08:30] turmeric root extract 1,000 mg PO BID 09/19/19 [History Confirmed 03/15/21 Last Taken 03/15/21 07:30] budesonide 180 mcg/actuation breath activated powder inhaler See Rx Instructions .ROUTE .COMPLEX #1 unknown measurement unit code: each 01/27/20 [Rx Confirmed 03/15/21 Last Taken 12/26/20 06:30] olmesartan 5 mg tablet See Rx Instructions .ROUTE .COMPLEX #90 tablet 05/10/20 [Rx Confirmed 03/15/21 Last Taken 03/14/21 20:30] ipratropium 0.5 mg-albuterol 3 mg (2.5 mg base)/3 mL nebulization soln 3 ml INHALATION QID PRN #180 ml 05/17/20 [Rx Confirmed 03/15/21 Last Taken 03/15/19 10:00] albuterol sulfate 90 mcg/actuation aerosol inhaler See Rx Instructions .ROUTE .COMPLEX #18 g 05/31/20 [Rx Confirmed 03/15/21 Last Taken 12/26/20 06:30] triamterene 37.5 mg-hydrochlorothiazide 25 mg tablet See Rx Instructions .ROUTE .COMPLEX #90 tab 08/14/20 [Rx Confirmed 03/15/21 Last Taken 03/15/21 07:30] blood-glucose meter #1 each 10/12/20 [Rx Confirmed 03/15/21 Last Taken Unknown] epinephrine 0.3 mg/0.3 mL injection, auto-injector 0.3 ml IM ONCE PRN #1 each 10/26/20 [Rx Confirmed 03/15/21 Last Taken 05/11/20 16:00] blood sugar diagnostic #100 each 11/09/20 [Rx Confirmed 03/15/21 Last Taken Unknown] cholecalciferol (vitamin D3) 250 mcg (10,000 unit) tablet 250 mcg PO QDAY 11/14/20 [History Confirmed 03/15/21 Last Taken 03/15/21 07:30] coenzyme Q10 100 mg capsule 100 mg PO QDAY 11/14/20 [History Confirmed 03/15/21 Last Taken 03/15/21 07:30] magnesium oxide 400 mg PO QDAY 11/14/20 [History Confirmed 03/15/21 Last Taken 03/15/21 07:30] erenumab-aooe 70 mg/mL subcutaneous auto-injector See Rx Instructions .ROUTE .COMPLEX #1 ml 11/26/20 [Rx Confirmed 03/15/21 Last Taken 02/25/21 12:00] fenofibrate 54 mg tablet See Rx Instructions .ROUTE .COMPLEX #90 tab 12/17/20 [Rx Confirmed 03/15/21 Last Taken 03/14/21 20:30] Diabetic shoes with inserts #1 ea 12/25/20 [Rx Confirmed 03/15/21 Last Taken Unknown] lamotrigine 150 mg tablet 150 mg PO BID 30 Days #60 tab 01/16/21 [Rx Confirmed 03/15/21 Last Taken 03/15/21 07:30] prazosin 2 mg capsule 2 mg PO QHS 90 Days #90 cap 01/16/21 [Rx Confirmed 03/15/21 Last Taken 03/14/21 20:30] fexofenadine 180 mg tablet 180 mg PO Q24H #90 tab 01/23/21 [Rx Confirmed 03/15/21 Last Taken 03/14/21 20:30] glipizide 5 mg tablet, extended release 24 hr 5 mg PO QDAY #90 tab 02/13/21 [Rx Confirmed 03/15/21 Last Taken 03/14/21 20:30] omeprazole 20 mg PO QDAY 03/16/21 [History Confirmed 03/16/21 Last Taken 03/15/21] COURSE Hospital Course Hospital course: Interval history: History of present illness: Ms. Loya is a 70 year old F Patient presents today with feeling ill upset stomach feeling like she is drunk he says kind of like vertigo but not quite. Patient went to bed feeling relatively fine feels a little warm she has been out in the heat for the past couple days. She woke up at 3 AM with a sick stomach and went back to bed got up at 6 went to feed her horse out in the heat came back still feeling ill upset stomach. Ventrally she went into minor care where she started having some nausea vomiting. Denies diarrhea. She does have a headache which she says is different from her usual tension headaches. Does not have that anymore. Noncontrast CT in ED was unremarkable. \Vital signs unremarkable. Chemistry negative of volume depletion Case discussed with neurologist given consideration for possibly posterior infarct. Neurologist felt less likely and probably related to BPPV given increased symptoms with movement recommended CTA head and neck. Patient understood that he in the ED and felt unsafe for discharge. Admission requested for further imaging work-up and evaluation. 03/16 Overall feeling much better. Still has a mild headache this morning. Still feels a little bit wobbly when she is up. 03/17 Doing well. No overnight event or new complaints. Stable for discharge. A: *Vertigo/unsteady: 2/2 dehydration/heat exhaustion -CTA head/neck unremarkable *N/V: 2/2 above *Diabetes w/neuropathy: *HTN/HLD: *Asthma: *PTSD/anxiety: On Lamictal/Ativan *Obesity: Discharge diagnosis: Vertigo weakness BP PV versus heat exhaustion nausea vomiting Secondary discharge diagnosis: Diabetes hypertension hyperlipidemia asthma PTSD anxiety obesity Time Spent with Patient Time attestation: Total time spent providing and/or coordinating discharge services: Time spent: Greater than 30 minutes EXAM Constitutional Vitals: Temp Pulse Resp BP Pulse Ox 97.3 F 68 16 119/78 96 03/16/21 07:06 03/16/21 07:06 03/16/21 07:06 03/16/21 07:06 03/16/21 07:06 Discharge Data Data Completed and Pending Labs on day of discharge: Labs from last 24 hours 03/16/21 03/16/21 03/15/21 05:20 05:20 12:26 WBC 8.1 RBC 4.30 Hgb 11.9 L Hct 39.0 MCV 90.7 MCH 27.7 MCHC 30.5 L RDW 13.9 Plt Count 237 MPV 10.9 H Neut % (Auto) 63.1 Lymph % (Auto) 27.0 [place] % (Auto) 7.8 Eos % (Auto) 1.5 Baso % (Auto) 0.6 Lymph # (Auto) 2.17 [place] # (Auto) 0.63 Eos # (Auto) 0.12 Baso # (Auto) 0.05 Absolute Neutrophils 5.08 PT INR Sodium 142 Potassium 4.0 Chloride 106 Carbon Dioxide 26 Anion Gap 10.0 BUN 18 Creatinine 0.6 GFR Calculation 92 Glucose 106 H Uric Acid 4.9 Calcium 9.6 Phosphorus 3.0 Magnesium 2.0 Total Bilirubin 0.3 Direct Bilirubin < 0.2 GGT 15 AST 10 ALT 18 Alkaline Phosphatase 40 Lactate Dehydrogenase 233 H Troponin T < 0.01 Total Protein 6.3 Albumin 3.9 Globulin 2.4 Albumin/Globulin Ratio 1.6 Triglycerides 63 Urine Color Urine Appearance Urine pH Ur Specific [place] Urine Protein Urine Glucose (UA) Urine Ketones Urine Occult Blood Urine Nitrate Urine Bilirubin Urine Urobilinogen Ur Leukocyte Esterase Ur Culture Indicated? Urine Opiates Screen Ur Opiates Confirm Ur Oxycodone Screen Urine Methadone Screen Ur Methadone Confirm Ur Barbiturates Screen Ur Barbiturate Confirm Ur Phencyclidine Scrn Urine PCP Confirm Ur Amphetamines Screen U Amphetamines Confirm U Benzodiazepines Scrn U Benzodiazepine Confm Urine Cocaine Screen Urine Cocaine Confirm U Cannabinoids Confirm U Marijuana (THC) Screen 03/15/21 03/15/21 03/15/21 12:26 12:26 12:26 WBC 8.3 RBC 4.50 Hgb 12.6 Hct 40.1 MCV 89.1 MCH 28.0 MCHC 31.4 RDW 13.9 Plt Count 241 MPV 10.8 H Neut % (Auto) 70.4 Lymph % (Auto) 20.7 [place] % (Auto) 7.2 Eos % (Auto) 1.2 Baso % (Auto) 0.5 Lymph # (Auto) 1.72 [place] # (Auto) 0.60 Eos # (Auto) 0.10 Baso # (Auto) 0.04 Absolute Neutrophils 5.84 PT 12.8 INR 0.9 Sodium 141 Potassium 3.9 Chloride 103 Carbon Dioxide 26 Anion Gap 12.0 BUN 26 H Creatinine 0.8 GFR Calculation 75 Glucose 160 H Uric Acid Calcium 10.2 Phosphorus Magnesium Total Bilirubin 0.3 Direct Bilirubin GGT AST 13 ALT 20 Alkaline Phosphatase 45 Lactate Dehydrogenase Troponin T Total Protein 7.2 Albumin 4.3 Globulin 2.9 Albumin/Globulin Ratio 1.5 Triglycerides Urine Color Urine Appearance Urine pH Ur Specific [place] Urine Protein Urine Glucose (UA) Urine Ketones Urine Occult Blood Urine Nitrate Urine Bilirubin Urine Urobilinogen Ur Leukocyte Esterase Ur Culture Indicated? Urine Opiates Screen Ur Opiates Confirm Ur Oxycodone Screen Urine Methadone Screen Ur Methadone Confirm Ur Barbiturates Screen Ur Barbiturate Confirm Ur Phencyclidine Scrn Urine PCP Confirm Ur Amphetamines Screen U Amphetamines Confirm U Benzodiazepines Scrn U Benzodiazepine Confm Urine Cocaine Screen Urine Cocaine Confirm U Cannabinoids Confirm U Marijuana (THC) Screen 03/15/21 03/15/21 12:05 12:05 WBC RBC Hgb Hct MCV MCH MCHC RDW Plt Count MPV Neut % (Auto) Lymph % (Auto) [place] % (Auto) Eos % (Auto) Baso % (Auto) Lymph # (Auto) [place] # (Auto) Eos # (Auto) Baso # (Auto) Absolute Neutrophils PT INR Sodium Potassium Chloride Carbon Dioxide Anion Gap BUN Creatinine GFR Calculation Glucose Uric Acid Calcium Phosphorus Magnesium Total Bilirubin Direct Bilirubin GGT AST ALT Alkaline Phosphatase Lactate Dehydrogenase Troponin T Total Protein Albumin Globulin Albumin/Globulin Ratio Triglycerides Urine Color Yellow Urine Appearance Clear Urine pH 7.0 Ur Specific [place] 1.020 Urine Protein Negative Urine Glucose (UA) Negative Urine Ketones Negative Urine Occult Blood Negative Urine Nitrate Negative Urine Bilirubin Negative Urine Urobilinogen Negative Ur Leukocyte Esterase Negative Ur Culture Indicated? No Urine Opiates Screen None detected Ur Opiates Confirm TNP Ur Oxycodone Screen None detected Urine Methadone Screen None detected Ur Methadone Confirm TNP Ur Barbiturates Screen None detected Ur Barbiturate Confirm TNP Ur Phencyclidine Scrn None detected Urine PCP Confirm TNP Ur Amphetamines Screen None detected U Amphetamines Confirm TNP U Benzodiazepines Scrn None detected U Benzodiazepine Confm TNP Urine Cocaine Screen None detected Urine Cocaine Confirm TNP U Cannabinoids Confirm Pending U Marijuana (THC) Screen Suspect positive A Discharge Plan Patient/Caregiver Discharge Instructions Activity: increase activity as tolerated Diet: Consistent Carbohydrate Prescriptions: Continued prazosin 2 mg capsule 2 mg PO QHS 90 Days Qty: 90 RF: 2 Hold Instructions: SHELL Harper lamotrigine [Lamictal] 150 mg tablet 150 mg PO BID 30 Days Qty: 60 RF: 2 magnesium oxide 400 mg magnesium capsule 400 mg PO QDAY RF: 0 cholecalciferol (vitamin D3) 250 mcg (10,000 unit) tablet 250 mcg PO QDAY RF: 0 coenzyme Q10 100 mg capsule 100 mg PO QDAY RF: 0 ipratropium-albuterol 0.5 mg-3 mg(2.5 mg base)/3 mL solution for nebulization 3 ml INHALATION QID PRN (Reason: shortness of breath) Qty: 180 RF: 3 budesonide [Pulmicort Flexhaler] 180 mcg/actuation aerosol powdr breath activated See Rx Instructions .ROUTE .COMPLEX Qty: 1 RF: 2 olmesartan 5 mg tablet See Rx Instructions .ROUTE .COMPLEX Qty: 90 RF: 3 albuterol sulfate 90 mcg/actuation HFA aerosol inhaler See Rx Instructions .ROUTE .COMPLEX Qty: 18 RF: 0 triamterene-hydrochlorothiazid 37.5-25 mg tablet See Rx Instructions .ROUTE .COMPLEX Qty: 90 RF: 3 (DME) blood-glucose meter [Accu-Chek Constance Plus Meter] Misc See Rx Instructions .ROUTE .MEDSUPPLY Qty: 1 RF: 0 epinephrine [EpiPen 2-Salty] 0.3 mg/0.3 mL auto-injector 0.3 ml IM ONCE PRN (Reason: Anaphylaxis) Qty: 1 RF: 0 (DME) Accu-Chek Constance Plus test strp Strip See Rx Instructions .ROUTE .MEDSUPPLY Qty: 100 RF: 0 Aimovig Autoinjector 70 mg/mL auto-injector See Rx Instructions .ROUTE .COMPLEX Qty: 1 RF: 3 fenofibrate 54 mg tablet See Rx Instructions .ROUTE .COMPLEX Qty: 90 RF: 1 (DME) Diabetic shoes with inserts See Rx Instructions .Route .MEDSUPPLY Qty: 1 RF: 0 lorazepam [Ativan] 0.5 mg tablet 0.5 mg PO BIDP PRN (Reason: Anxiety) RF: 0 B-12 Compliance 1,000 mcg/mL kit 1,000 mcg IM QMONTH RF: 0 fexofenadine 180 mg tablet 180 mg PO Q24H Qty: 90 RF: 1 glipizide 5 mg tablet extended release 24hr 5 mg PO QDAY Qty: 90 RF: 1 fluticasone propionate 1 SPRAY spray,suspension 2 spray NS BID PRN (Reason: Allergy Symptoms) RF: 0 turmeric root extract 500 MG capsule 1,000 mg PO BID RF: 0 L.acidoph, paracasei,B. lactis 1 EACH capsule 2 each PO DAILY RF: 0 No Action omeprazole 20 mg Capsule,Delayed Release(Dr/Ec) 20 mg PO QDAY RF: 0 Follow Up Plan Follow up with: Irina Martin ARNP [Primary Care Provider] - Patient Disposition: Home, Self-Care Prognosis: Good Overall status at discharge: patient is progressing back to baseline Discharge Orders: Discharge Order (Routine); Ordered 03/17/21 Ordered By: Jadiel Yi [facility] VTE Deep Vein Thrombosis/Pulmonary Embolism Present on Admission: No
[2021-03-16] MEDS: BUDESONIDE 1 PUFF INHALER INH SCH (09:31)
[2021-03-16] MEDS: MECLIZINE 25 MG TABLET PO SCH ×3 (09:31→21:06)
[2021-03-16] MEDS: ENOXAPARIN 40 MG/0.4 ML SYRINGE SQ SCH (09:32)
[2021-03-16] MEDS: lamoTRIgine 100 MG TABLET PO SCH ×2 (09:32→21:06)
[2021-03-16] MEDS ORDERED: BUDESONIDE 1 PUFF INHALER INH PRN (10:45)
--- NOTE | 2021-03-16 15:09 | EKG ---
[facility] Test Date: 2021-03-15 Pat Name: Shakila Loya Department: ED Room: Gender: Female Substation Technician: : [id number] Requested By: Mo Cruz Order Number: [id number] Reading MD: [place] M.D. Measurements Intervals [place] Rate: 62 P: 23 MT: 147 QRS: 33 QRSD: 91 T: 43 QT: 384 QTc: 390 Interpretive Statements Sinus rhythm Minimal ST elevation, anterior leads NO PRIOR TRACING FOR COMPARISON NORMAL TRACING Electronically Signed On 03-16-2021 15:08:38 PDT by [place] M.D. /[id number]
[2021-03-16] MEDS: SENNOSIDES 1 TABLET PO SCH (21:00)
[2021-03-16] MEDS ORDERED: PRAZOSIN 1 MG CAPSULE PO SCH (21:00)
[2021-03-16] MEDS: FENOFIBRATE 43 MG CAPSULE PO SCH (21:05)
[2021-03-17] MEDS: 0.9 % SODIUM CHLORIDE 10 ML SYRINGE IV SCH (06:01)
[2021-03-17] MEDS: ACETAMINOPHEN 325 MG TABLET PO PRN (06:01)
[2021-03-17] MEDS: INSULIN LISPRO 1 UNIT/0.01 ML UNIT SQ SCH (06:59)
[2021-03-17] MEDS ORDERED: OMEPRAZOLE 20 MG CAPSULE PO SCH (07:30)
[2021-03-17] MEDS: lamoTRIgine 100 MG TABLET PO SCH (08:27)
[2021-03-17] MEDS: MECLIZINE 25 MG TABLET PO SCH (08:28)
[2021-03-17] MEDS: ENOXAPARIN 40 MG/0.4 ML SYRINGE SQ SCH (08:28)
[2021-03-17] MEDS ORDERED: glipiZIDE 5 MG TAB.XL.24H PO SCH (17:30)
== END 2021-03-17 10:35 | disposition home or self-care (01) | DRG 149 ==
LOC: ED 11:15 → MEDSUR 19:27
PROVIDERS: ADMIT Internal Medicine; ATTEND Internal Medicine